=== PATIENT | female | born 1960 | race Caucasian/White ===

== ENCOUNTER 2017-10-28 16:27 | Inpatient (IN) ==
[2017-10-28] MEDS ORDERED: Acetaminophen 325 MG TABLET PO PRN (22:52)
[2017-10-28] MEDS ORDERED: Naloxone 0.4 MG/ML INJ IVP PRN (22:52)
--- NOTE | 2017-10-28 23:14 | Internal Med History&Physical ---
Date of Encounter: 10/28/17 Time of Encounter: 23:00 Assessment and Plan (1) Acute ischemic stroke Current visit: Yes Status: Acute Acute ischemic stroke involving the left temporal and left parietal and left occipital lobe. 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 Acute/subacute. Continue Aggrenox and atorvastatin. Consult neurology. Telemetry. 2-D echocardiogram. Check lipid profile and A1c. Monitor vital signs closely. Physical therapy, speech therapy evaluation. High risk for complications. (2) Diabetes mellitus Current visit: Yes Status: Chronic Monitor blood sugars. Check A1c level. Sliding scale insulin. Diabetic diet when patient is able to tolerate Qualifiers: Diabetes mellitus type: type 2 Diabetes mellitus skilled nursing insulin use: with terminal gauger use Diabetes mellitus complication status: with hyperglycemia Qualified Code(s): E11.65 - Type 2 diabetes mellitus with hyperglycemia; Z79.4 - intermediate teacher (current) use of insulin; Z79.4 - retirement (current) use of insulin; Z79.4 - retirement (current) use of insulin; Z79.4 - retirement (current ) use of insulin (3) Essential hypertension Current visit: Yes Status: Chronic Monitor blood pressure. Allow for permissive hypertension given acute stroke. (4) Chronic kidney disease, stage III (moderate) Current visit: Yes Status: Chronic Patient appears to have chronic kidney disease stage III at baseline. Will monitor renal function. Avoid nephrotoxic agents. Gentle IV hydration. (5) Hyperlipidemia Current visit: Yes Status: Chronic Check lipid profile. Continue atorvastatin. Qualifiers: Hyperlipidemia type: mixed hyperlipidemia Qualified Code(s): E78.2 - Mixed hyperlipidemia (6) DVT prophylaxis Current visit: Yes Status: Acute Subcutaneous heparin. Internal Medicine - H&P: HPI Chief complaint: Left lower extremity weakness and slurred speech Admitted From: Emergency Dept ([facility]) History of present illness: Ms. Emmanuel is a 57 year old female patient with history of CVA, hypertension, hyperlipidemia, anxiety, depression, diabetes mellitus, multinodular goiter presented to the ER at [facility] with complaints of dizziness and weakness. She had seen her primary care provider earlier for 2 episodes of recent falls. Patient has slurred and hesitant speech. She reports feeling weak this morning and was back at her baseline yesterday. However reviewing her ED records, it appears that the patient has been having declining functional status at home over the past week along with urinary incontinence. She also apparently had 90 pound weight loss and was also complaining of weakness in her left lower extremity. Unclear what her baseline speech is but according to ED records it was most noticeably different according to her family. She reports that her last stroke was in 2007. Her primary care provider sent her to the ER for further evaluation. She underwent a CT scan of the head in the ER which showed subacute stroke in the left side of the brain. This was confirmed with MRI. She was therefore transferred over here for further care. She continues to have slurred and history in speech with weakness in left lower extremity. She denies any chest pain or shortness of breath. No palpitations. No facial droop. No numbness or tingling. Past Med Surg Social Fam HX - Past Medical History Attestation: Yes The following information was validated with the patient. Source: patient, other (Records from [facility]) Medical history: CVA, diabetes, hyperlipidemia, hypertension, other (Possible multiple sclerosis) - Social History Smoking Status: Unknown if ever smoked Alcohol use: none Current living situation: Home - Independent - Additional Family History Additional family history: Reviewed in charts and found to be noncontributory at this time All Systems PM: A 10-system review of systems was performed and is negative for pertinent findings except as documented above in the HPI. - Constitutional Constitutional: no chills, no fever(s), no night sweats - EENT Eyes: no change in vision, no discharge, no pain, no photophobia Ears: no ear discharge, no ear pain, no tinnitus Nose, mouth and throat: no dysphagia, no nasal discharge, no neck pain, no sore throat - Cardiovascular Cardiovascular ROS IM: no chest pain, no diaphoresis, no dyspnea, no lightheadedness, no palpitations, no syncope - Respiratory Respiratory: no cough, no dyspnea, no wheezing, no excessive phlegm production - Gastrointestinal Gastrointestinal: no abdominal pain, no diarrhea, no hematemesis, no hematochezia, no melena, no nausea, no vomiting - Genitourinary Genitourinary: no change in urinary stream, no dysuria, no flank pain, no hematuria - Musculoskeletal Musculoskeletal ROS IM: no numbness, no tingling - Integumentary Integumentary IM: no rash, no unusual bruising - Neurological Neurological ROS: abnormal speech, focal weakness, weakness - Hematologic/Lymphatic Hematologic/Lymphatic: no easy bruising - Constitutional Vitals: Temp Pulse Resp BP Pulse Ox 99.1 F 77 16 105/57 96 10/28/17 22:42 10/28/17 22:42 10/28/17 22:42 10/28/17 22:42 10/28/17 22:42 General appearance: Present: cooperative, A&O X 2, answers questions appropriately Exam: Slurred and hesitant speech - Neck Neck exam general surgery: Present: supple, trachea midline. Absent: lymphadenopathy - Respiratory Respiratory exam: Present: CTAB. Absent: accessory muscle use, rales, rhonchi, wheezes - Cardiovascular Cardiovascular exam: Present: RRR, +S1, +S2, systolic murmur. Absent: diastolic murmur, gallop, rubs - GI/Abdominal GI/Abdominal exam: Present: normal bowel sounds, soft, no peritoneal signs. Absent: distended, tenderness - Extremities Exam Extremities exam: Present: warm, radial pulses palpable and symmetrical. Absent : calf tenderness, cyanotic, pedal edema - Neurological Exam Neurological exam: Present: alert, motor sensory deficit (Patient having decreased strength in her left lower extremity 4 out of 5; 5 out of 5 in all other extremities), speech deficit. Absent: facial droop Internal Med - H&P Results - Labs Labs: Her BBC 9.1, sodium 136, potassium 5, chloride 96, bicarbonate 29, glucose 281, BUN 28, creatinine 1.56 TSH 0.749 - EKG Data -: EKG Interpreted by Myself EKG shows normal: sinus rhythm - EKG Data Interpretation IM: normal EKG - Impressions CT head shows subacute left sided infarct with possible 2 vascular territories involvement. MRI of the brain shows scattered ischemic white matter changes with acute or subacute infarct in the left side of the brain. Reports reviewed. We will review images once they are available.
[2017-10-28] MEDS ORDERED: Ringers Solution, Lactated 1,000 ML IVC SCH (23:45)
[2017-10-29] MEDS ORDERED: D5% in Water 1,000 ML IVC PRN ×2 (01:24→08:52)
[2017-10-29] MEDS ORDERED: *HR* Dextrose 50 % in Water (Syg) 50 ML SYRINGE IVP PRN ×2 (01:24→08:52)
[2017-10-29] MEDS ORDERED: Dextrose Gel 15 GM/37.5 ML TUBE PO PRN ×4 (01:24→08:52)
[2017-10-29 03:53] LABS: Basophils % 0.4 %; Eosinophils # 0.1 K/mcL (0.0-0.6); Eosinophils % 1.1 %; Hematocrit 49.2 % (35.3-44.9); Hemoglobin 15.2 g/dL (11.5-15.4); Immature Granulocytes % 0.3 % (0-4); Lymphocytes # 1.9 K/mcL (0.6-4.6); Lymphocytes % 25.6 %; Mean Corpuscular HGB Conc 30.9 g/dL (31.6-35.5); Mean Corpuscular Hemoglobin 28.3 pg (28.0-33.3); Mean Corpuscular Volume 91.6 fL (83.0-100.0); Mean Platelet Volume 12.5 fL (9.4-12.4); Monocytes # 0.6 K/mcL (0.0-1.3); Monocytes % 8.9 %; Neutrophils # 4.6 K/mcL (1.6-8.9); Nucleated Red Blood Cells 0.3 /100 WBC (0); Platelet Count 194 K/mcL (140-400); Red Blood Count 5.37 M/mcL (3.82-4.97); Red Cell Distribution Width 13.2 % (11.5-14.5); Segmented Neutrophils % 63.7 %
[2017-10-29 04:09] LABS: Calcium 10.2 mg/dL (8.6-10.3); Chol/HDL Ratio 3.3 (0-4.9); Potassium 4.3 mEq/L (3.5-5.1)
[2017-10-29] MEDS: *HR* Heparin 5,000 UNIT/ML VIAL SQ SCH ×2 (06:10→17:39)
[2017-10-29] MEDS ORDERED: Insulin LISPRO 300 UNITS/3 ML VIAL SQ SCH ×4 (07:30→21:30)
[2017-10-29] MEDS: amLODIPine 5 MG TABLET PO SCH (08:19)
[2017-10-29] MEDS: (Mirabegron [Myrbetriq] 25 MG PO SCH (08:20)
[2017-10-29] MEDS ORDERED: Ondansetron 4 MG/2 ML VIAL IVP PRN (08:34)
--- NOTE | 2017-10-29 08:48 | Internal Med Progress Note ---
Date of Encounter: 10/30/17 Time of Encounter: 08:45 - Assessment and plan (1) Acute ischemic stroke Current Visit: Yes Status: Acute Assessment and plan: Residual deficits being dysarthria, and left princess paresis, leg much greater than the arm. (2) Chronic kidney disease, stage III (moderate) Current Visit: Yes Status: Chronic (3) Diabetes mellitus Current Visit: Yes Status: Chronic Assessment and plan: Control could be improved, therefore will adjust her insulin. Qualifiers: Diabetes mellitus type: type 2 Diabetes mellitus prison insulin use: with director physical therapy use Diabetes mellitus complication status: with hyperglycemia Qualified Code(s): E11.65 - Type 2 diabetes mellitus with hyperglycemia; Z79.4 - detention (current) use of insulin; Z79.4 - automotive professional (current) use of insulin; Z79.4 - automotive professional (current) use of insulin; Z79.4 - automotive professional (current ) use of insulin (4) Essential hypertension Current Visit: Yes Status: Chronic Assessment and plan: Appropriate control. - Time Spent With Patient less than 15 minutes - Subjective Interval history: Having some nausea this morning, no abdominal pain, she admits being hungry. She still has some dysarthric speech. Still not moving the left leg much at all. She also will need some rehabilitation upon discharge here. Her sugars are running a bit high as well, will modify her insulin. - Constitutional Vitals: Temp Pulse Resp BP Pulse Ox 98.1 F 68 18 146/79 94 10/29/17 07:55 10/29/17 08:30 10/29/17 07:55 10/29/17 07:55 10/29/17 07:55 General appearance: Present: cooperative, A&O X 3, answers questions appropriately - Head Head exam: Present: normal inspection - Respiratory Respiratory exam: Present: CTAB. Absent: respiratory distress, wheezes, tachypnea - Cardiovascular Cardiovascular exam: Present: RRR, +S1, +S2, systolic murmur. Absent: JVD, tachycardia - GI/Abdominal GI/Abdominal exam: Present: normal bowel sounds, soft, no peritoneal signs. Absent: tenderness - Extremities Exam Additional comments: Minimal left proximal leg motion. Able to raise both upper extremities without difficulty. - Neurological Exam Neurological exam: Present: alert Internal Medicine: Result - Labs CBC & Chem 7: 10/30/17 00:42 10/30/17 00:42 Labs: Short CBC 10/29/17 Range/Units 03:31 WBC 7.2 (4.3-11.1) K/mcL Hgb 15.2 (11.5-15.4) g/dL Hct 49.2 H (35.3-44.9) % Plt Count 194 (140-400) K/mcL Neutrophils # 4.6 (1.6-8.9) K/mcL BMP 10/29/17 03:31 Sodium 136 Potassium 4.3 Chloride 104 Carbon Dioxide 25 BUN 27 H Creatinine 1.36 H Glucose 272 H Calcium 10.2 - Stroke Is the patient on any antithrombotics?: Yes Are there any contradictions to antithrombotics?: No Consult Discharge Plan - Plan Referrals: Brenda Jones MD [Primary Care Provider] -
[2017-10-29] MEDS: Insulin LISPRO 300 UNITS/3 ML VIAL SQ SCH ×3 (11:53→21:59)
--- NOTE | 2017-10-29 13:54 | Neurology - Consult Note ---
Date of Encounter: 10/29/17 Time of Encounter: 13:50 Assessment and Plan (1) Acute ischemic stroke Current Visit: Yes Status: Acute This patient certainly has risk factors for stroke, and has evidence of bihemispheric ischemic infarcts. Also lacunar infarcts are identified. However there is no evidence of any acute infarction. Perhaps the findings on her examination are not acute but may have been there for days or weeks. The most significant abnormalities identified on the MRI involving the left hemisphere however the bulk of her weakness is on the left. She does have right hemispheric abnormalities that reconcile this finding. I am doubtful of any other acute process such as Guillain-[place] or an abnormality of the spinal cord since she has limited pain and sensory changes. I would like to obtain a carotid duplex Doppler study as well as echocardiogram otherwise I would recognize aggressive management of her stroke risk factors which could include aggressive management of her diabetes. Her blood pressure is reasonably well controlled. And she is already on statins. She may need an extended care facility movement is time for discharge. Would recommend maintaining the Aggrenox. Studies have proven no benefit in double antiplatelet therapy for treatment of Cerebral vascular disease. Might also recommend social sciences lecturer evaluation to find out the specifics of her home situation and support systems there. History of Present Illness HPI: Ms. Emmanuel is a 57 year old female who is being seen for neurologic consultation secondary to strokelike symptoms. Patient is a difficult historian and certainly has his speech abnormality. I am not certain whether or not this is acute or not this is been a long-standing problem. However apparently she has had some changes in her speech as well as weakness of the left upper and left lower extremities. She feels me that this all started on Tuesday. But again I am not able to discern the context of when and how her deficits began. Apparently over the last week or so she is shown some declining functional status at home and has apparently had multiple strokes in the past. She is a poorly controlled diabetic, she has a history of hypertension diabetes mellitus chronic kidney disease previous strokes and hyperlipidemia. MRI scan of the brain does reveal evidence of chronic scattered bilateral cortical as well as lacunar infarctions in the deep white matter and basal ganglia. There is a large infarction which appears to be chronic involving the left temporal occipital regions. There is also an old infarct in the left cerebellar peduncle, chronic deep white matter changes bilaterally as well as in the basal ganglia. There is also a significant element of cerebellar atrophy. The scan is movement degraded. The patient seems to me to have some difficulty with cognition. She denies neck pain denies numbness tingling or paresthesias, denies visual changes. She denies back pain. Past Med Surg Social Fam HX - Past Medical History Medical history: CVA, diabetes, hyperlipidemia, hypertension, other (Possible multiple sclerosis) - Past Surgical History Surgical History: no surgical history - Social History Smoking Status: Unknown if ever smoked Alcohol use: none Drug use: none Medications and Allergies Aspirin/Dipyridamole [Aggrenox 25 mg-200 mg Capsule] 1 each PO BID 10/29/17 [ History] Atorvastatin [Lipitor] 40 mg PO HS 10/29/17 [History] Buspirone HCl [Buspar] 7.5 mg PO BID 10/29/17 [History] Carvedilol [Coreg] 25 mg PO BID 10/29/17 [History] Insulin Glargine,Hum.rec.anlog [Basaglar Kwikpen U-100] 10 unit SQ HS 10/29/17 [ History] Mirabegron [Myrbetriq] 25 mg PO DAILY 10/29/17 [History] amLODIPine [Norvasc] 10 mg PO DAILY 10/29/17 [History] 3 Allergy/AdvReac Type Severity Reaction Status Date / Time No Known Drug Allergies Allergy No Verified 10/29/17 01:00 allergies. All Systems: The remainder of the systems were reviewed and are negative Review of Systems: A 10 point review of systems is consistent with the history of present illness and is otherwise negative. Physical Examination - Vital Signs Vital Signs: Initial Vital Signs Temp Pulse Resp BP Pulse Ox 99.1 F 77 16 105/57 96 10/28/17 22:42 10/28/17 22:42 10/28/17 22:42 10/28/17 22:42 10/28/17 22:42 - Exam Exam: Neurologic examination is performed and finds the following; Cerebral functions-she is awake and alert and oriented to person and place. She is not able to give a precise history of her medical circumstances. Her speech is dysarthric however also seems to have difficulty with cognition. She is bradyphrenic. She is follow some simple commands however seems to have motor apraxia with others. Cranial nerves pupils are equal and reactive to light. Saccades movements and pursuit movements are very jerky bilaterally. Sensory to face is intact, mastication is intact. I see no facial asymmetry. Her dentition is very poor. Speech is dysarthric. Tongue protrudes midline. Motor exam-motor strength of the left upper extremity is 4/5 in the deltoids, biceps strength 3/5, left triceps 2 steps 3/5, left concessionist strength 4/5. Left iliopsoas is 3/5, left tibialis anterior 2/5. She also has weakness in eversion of the left foot. She has normal strength bulk and tone of the right upper and right lower extremities. No involuntary movements or atrophy are present. Sensory exam finds no hemihypesthesia. Sensory exam is sometimes difficult to discern in this patient who is confused. Deep tendon reflexes are 1 symmetrically in the biceps triceps and brachial radialis. Patella reflexes are absent symmetrically. Achilles reflexes are absent symmetrically. There is a left Babinski. No right Babinski. No ankle clonus is present. Results - Laboratory Findings CBC and BMP: 10/29/17 03:31 10/29/17 03:31 Abnormal lab findings: Abnormal lab results RBC 5.37 M/mcL (3.82-4.97) H 10/29/17 03:31 Hct 49.2 % (35.3-44.9) H 10/29/17 03:31 MCHC 30.9 g/dL (31.6-35.5) L 10/29/17 03:31 MPV 12.5 fL (9.4-12.4) H 10/29/17 03:31 Nucleated RBCs/100 WBC 0.3 /100 WBC (0) H 10/29/17 03:31 BUN 27 mg/dL (6-20) H 10/29/17 03:31 Creatinine 1.36 mg/dL (0.60-1.20) H 10/29/17 03:31 Est GFR ( Amer) 49 (> 60) L 10/29/17 03:31 Est GFR (Non-Af Amer) 40 (> 60) L 10/29/17 03:31 Glucose 272 mg/dL (70-105) H 10/29/17 03:31 HDL Cholesterol 37 mg/dL (40-59) L 10/29/17 03:31 Consult Discharge Plan - Plan Referrals: Brenda Jones MD [Primary Care Provider] -
[2017-10-29] MEDS ORDERED: NON-FORMULARY MEDICATION 1 EACH EACH (Insulin Glargine,Hum.Rec.Anlog [Basaglar Kwikpen U-1 SQ SCH (21:00)
[2017-10-29] MEDS: Insulin DETEMIR 100 UNIT/ML X5UNITS SQ SCH (22:00)
[2017-10-30] MEDS ORDERED: 0.9 % Sodium Chloride 1,000 ML ONE (00:12)
--- NOTE | 2017-10-30 00:30 | Event Note ---
Date of Encounter: 10/30/17 Time of Encounter: 00:28 Responded to rapid response called around 1215 a.m. today. On arrival to patient's room patient resting in bed. Denies any complaints. Patient had apparently had an episode of bradycardia and hypotension when she was having a bowel movement. Improved spontaneously without any medications. Blood pressure is now improving to her baseline and heart rate is in the 60s. She denies any chest pain palpitations. No dizziness. We will give 500 mL normal saline bolus and recheck CBC basic panel and magnesium. Patient has not had any abnormal rhythm on telemetry prior to this episode.
[2017-10-30 00:57] LABS: Basophils % 0.3 %; Eosinophils # 0.1 K/mcL (0.0-0.6); Eosinophils % 1.5 %; Hematocrit 41.8 % (35.3-44.9); Hemoglobin 13.1 g/dL (11.5-15.4); Immature Granulocytes % 0.3 % (0-4); Lymphocytes # 1.8 K/mcL (0.6-4.6); Lymphocytes % 24.4 %; Mean Corpuscular HGB Conc 31.3 g/dL (31.6-35.5); Mean Corpuscular Volume 92.5 fL (83.0-100.0); Mean Platelet Volume 12.4 fL (9.4-12.4); Monocytes # 0.8 K/mcL (0.0-1.3); Monocytes % 9.9 %; Neutrophils # 4.8 K/mcL (1.6-8.9); Platelet Count 188 K/mcL (140-400); Red Blood Count 4.52 M/mcL (3.82-4.97); Segmented Neutrophils % 63.6 %
[2017-10-30 03:07] LABS: Calcium 9.8 mg/dL (8.6-10.3); Potassium 3.6 mEq/L (3.5-5.1)
[2017-10-30] MEDS: *HR* Heparin 5,000 UNIT/ML VIAL SQ SCH ×2 (06:03→16:46)
--- NOTE | 2017-10-30 07:46 | Internal Med Progress Note ---
Date of Encounter: 11/01/17 Time of Encounter: 07:44 - Assessment and plan (1) Acute ischemic stroke Status: Acute Assessment and plan: She continues to improve. The plan is to continue PT and OT. I think she can be safely discharged tomorrow if also services can find a rehabilitation bed. We will work on a bowel movement today, to avoid further vasovagal spells. 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 No other new concerns. Hope is to continue PT and OT, with need for rehabilitation bed upon discharge for tomorrow. No further nausea - Constitutional Vitals: Temp Pulse Resp BP Pulse Ox 98.3 F 70 18 130/68 100 10/30/17 07:35 10/30/17 07:35 10/30/17 07:35 10/30/17 07:35 10/30/17 07:35 General appearance: Present: cooperative, A&O X 3, answers questions appropriately - Eye Eye exam: Present: EOMI, sclera anicteric. Absent: nystagmus, scleral icterus - Neck Neck exam general surgery: Present: full ROM, normal inspection, supple, trachea midline - Cardiovascular Cardiovascular exam: Present: RRR, +S1, +S2. Absent: JVD, systolic murmur - GI/Abdominal GI/Abdominal exam: Present: normal bowel sounds, soft, no peritoneal signs. Absent: tenderness - Neurological Exam Neurological exam: Present: alert Additional comments: Still considerable left leg weakness, dysarthria is a good deal improved. Internal Medicine: Result - Labs CBC & Chem 7: 10/30/17 00:42 10/30/17 00:42 Labs: Short CBC 10/30/17 Range/Units 00:42 WBC 7.6 (4.3-11.1) K/mcL Hgb 13.1 D (11.5-15.4) g/dL Hct 41.8 (35.3-44.9) % Plt Count 188 (140-400) K/mcL Neutrophils # 4.8 (1.6-8.9) K/mcL BMP 10/30/17 00:42 Sodium 139 Potassium 3.6 Chloride 109 H Carbon Dioxide 23 BUN 26 H Creatinine 1.39 H Glucose 165 H Calcium 9.8 Cardiac Enzymes 10/30/17 Range/Units 00:42 Troponin I 0.03 (< 0.04) ng/mL - Impressions Impressions Echocardiogram 10/28/17 23:33 Impressions: LVEF 70%. Severe concentric left ventricular hypertrophy. Mild left ventricular diastolic dysfunction. Normal right ventricular structure and function. No significant valvular dysfunction. No pulmonary hypertension. Suboptimal saline contrast injection to detect PFO. Left Ventricular Wall Motion: Rest Echo Findings All wall segments showed normal motion. Findings: Study Quality * Technically adequate exam. ECG Findings * Normal sinus rhythm. Left Ventricle * LVEF 70%. * Severe concentric left ventricular hypertrophy. * Mild left ventricular diastolic dysfunction. Right Ventricle * Normal right ventricular structure and function. Right Atrium * Normal right atrial size. Left Atrium * Mildly dilated left atrium. Mitral Valve * Normal mitral valve structure. * No mitral stenosis. * Trace mitral regurgitation. Aortic Valve * No aortic regurgitation. * Trileaflet aortic valve. * No aortic stenosis. Tricuspid Valve * Tricuspid valve not well visualized. * Trace tricuspid regurgitation. Pulmonic Valve * Pulmonic valve is not well visualized. * No pulmonic stenosis. * No pulmonic regurgitation. Pulmonary Artery * Pulmonary artery not well visualized. Aorta * Not well visualized. Pericardium * There is no pericardial effusion present. Interatrial Septum * No evidence of PFO by color Doppler. IVC * The IVC is not well evaluated. - Stroke Is the patient on any antithrombotics?: Yes Are there any contradictions to antithrombotics?: No Consult Discharge Plan - Plan Instructions: Ischemic Stroke (DC), Ischemic Stroke (GEN), Self Care Measures After a Stroke (DC) Referrals: Brenda Jones MD [Primary Care Provider] - (Patient is going to [facility] no PCP appointment needed)
[2017-10-30] MEDS ORDERED: Bisacodyl 10 MG RECTAL SUPPOSITORY RC ONE (07:50)
[2017-10-30] MEDS: Insulin LISPRO 300 UNITS/3 ML VIAL SQ SCH ×4 (08:19→21:44)
[2017-10-30] MEDS: (Mirabegron [Myrbetriq] 25 MG PO SCH (08:20)
[2017-10-30] MEDS: amLODIPine 5 MG TABLET PO SCH (08:20)
[2017-10-30] MEDS: MOM Conc 10 ML UD.LIQ PO SCH (09:26)
[2017-10-30 09:36] LABS: Estimated Average Glucose 395 mg/dl; Hemoglobin A1C 15.4 %
[2017-10-30] MEDS: Insulin DETEMIR 100 UNIT/ML X5UNITS SQ SCH (21:44)
[2017-10-31] MEDS: *HR* Heparin 5,000 UNIT/ML VIAL SQ SCH (06:43)
[2017-10-31] MEDS: amLODIPine 5 MG TABLET PO SCH (08:45)
[2017-10-31] MEDS: MOM Conc 10 ML UD.LIQ PO SCH (08:45)
[2017-10-31] MEDS: Insulin LISPRO 300 UNITS/3 ML VIAL SQ SCH ×2 (08:47→12:05)
[2017-10-31] MEDS: (Mirabegron [Myrbetriq] 25 MG PO SCH (08:50)
--- NOTE | 2017-10-31 09:14 | Discharge Summary ---
<Harley Vo - Last Filed: 10/31/17 09:12> Orders not resulted at time of discharge: Pending orders 10/30/17 00:30 EKG [ECG 12 lead ECG] [ECG] Stat Date of Encounter: 10/31/17 Time of Encounter: 09:13 - Discharge Diagnosis (1) Acute ischemic stroke Priority: Primary Status: Acute (2) Diabetes mellitus Priority: Secondary Status: Chronic Qualifiers: Diabetes mellitus type: type 2 Diabetes mellitus long-term insulin use: with long-term use Diabetes mellitus complication status: with hyperglycemia Qualified Code(s): E11.65 - Type 2 diabetes mellitus with hyperglycemia; Z79.4 - technician terminal and repeater (current) use of insulin; Z79.4 - technician terminal and repeater (current) use of insulin; Z79.4 - correction (current) use of insulin; Z79.4 - technician terminal and repeater (current ) use of insulin (3) Chronic kidney disease, stage III (moderate) Priority: Secondary Status: Chronic (4) Hyperlipidemia Priority: Secondary Status: Chronic Qualifiers: Hyperlipidemia type: mixed hyperlipidemia Qualified Code(s): E78.2 - Mixed hyperlipidemia Hospital course: Ms. Emmanuel is a 57 year old female presented to the emergency room at [facility] with chief complaint of dizziness and weakness. At that time patient had slurred speech and left lower extremity weakness. She also had complaints of weakness. She was noted to have declining functional status at home week before admission with urinary incontinence. She underwent CT scanning of the head which showed subacute stroke in the left side of the brain this was confirmed by MRI. Patient was then transferred to [facility]. Patient's home dose of Aggrenox and statin were continued. Neurology was consulted. Echocardiogram showed a left ventricular ejection fraction of 70% with severe concentric left ventricular hypertrophy. Carotid imaging showed findings of right proximal ICA moderate stenosis of 40-59%, left ICA had nonstenotic plaque. Patient was also noted physical therapy and occupational therapy recommended physical rehabilitation after discharge. Speech therapy also evaluate the patient and she does not require special diet. Neurology noted the patient likely had subacute infarcts rather than acute involving the left hemisphere. She was recommended to continue statin and Aggrenox and be discharged to a rehabilitation facility. During her stay on 10/30/17 patient had a bradycardic and hypotensive episode while having a bowel movement and improved spontaneously without any medications. She was given a 500 mL normal saline bolus. This morning patient is able to tolerate her diet, is alert and oriented 3, vitals are stable. She will be discharged to [facility] once approved. Discharge discussed with: patient, social work - Time Spent with Patient Total time spent providing and/or coordinating discharge services: - Discharge Medications Home Medications: Aspirin/Dipyridamole [Aggrenox 25 mg-200 mg Capsule] 1 each PO BID 10/29/17 [ History] Atorvastatin [Lipitor] 40 mg PO HS 10/29/17 [History] Carvedilol [Coreg] 25 mg PO BID 10/29/17 [History] Insulin ASPART [Novolog] 10 unit SQ TID 10/29/17 [History] Insulin Glargine,Hum.rec.anlog [Basaglar Kwikpen U-100] 10 unit SQ HS 10/29/17 [ History] Mirabegron [Myrbetriq] 25 mg PO DAILY 10/29/17 [History] amLODIPine [Norvasc] 10 mg PO DAILY 10/29/17 [History] Allergies/Adverse Reactions: 3 Allergy/AdvReac Type Severity Reaction Status Date / Time No Known Drug Allergies Allergy No Verified 10/29/17 15:49 allergies. Date of admission: 10/29/17 12:11 Primary care physician: Brenda Jones, Consults: 10/28/17 22:53 Consult to Occupational Therapy [CONS] Routine Comment: Evaluate, develop and implement POC Reason for Consult: Stroke Consult to Physical Therapy [CONS] Routine Comment: Evaluate, develop and implement POC Reason for Consult: Stroke 10/28/17 23:33 Consult to Speech Therapy [CONS] Routine Comment: Evaluate, develop and implement POC Reason for Consult: Acute stroke Call Completed: No 10/29/17 07:39 Consult to Neurology [CONS] Routine Consulting Provider: [facility] Reason for Consult: Acute ischemic stroke Call Completed: No 10/30/17 07:55 Consult to [facility] [CONS] Routine Reason for SW Consult: Needs ECF rehabilitation placement, potential discharge for Discharging clinician: Harley Vo Anticipated date of discharge: 10/31/17 - Constitutional Vitals: Temp Pulse Resp BP Pulse Ox 98.5 F 70 20 130/65 98 10/31/17 07:25 10/31/17 07:25 10/31/17 07:25 10/31/17 07:25 10/31/17 07:25 General appearance: Present: cooperative, A&O X 3, answers questions appropriately - Other Additional findings: General: without distress HEENT: Head atraumatic, normocephalic, EOMI, PERRL, neck nontender to palpation , absent lymphadenopathy, Moist Mucous Membranes, Heart: Regular rate and rhythm with no murmur Lungs: Clear to auscultation bilaterally Abdomen: Soft nontender, nondistended positive bowel sounds Skin: warm and dry Extremities: Absent pedal edema, Neuro: Cranial nerves II through XII intact, UE and LE sensation equal bilaterally, UE strength 5/5 and RLE strength 5/5 and LLE strength 3/5, alert oriented 3, dysarthric speech Vascular: Pedal and radial pulses 2 out of 4 - Patient Status Disposition: Transfer Inpatient Rehab Fac Condition: Fair Functional capacity at discharge: uses cane/walker Overall status at discharge: patient is progressing back to baseline - Discharge Instructions Follow Up With: Brenda Jones MD [Primary Care Provider] - (LEFT VOICEMAIL FOR THEM TO CALL ME BACK 10-31-17 @ 0812) - Diet and Activity Activity: increase activity as tolerated Diet: diabetic diet, low fat, low cholesterol, low salt diet <Bennie Westbrook H - Last Filed: 10/31/17 10:46> Date of Encounter: 10/31/17 Hospital course: Ms. Emmanuel is a 57 year old female - Time Spent with Patient Total time spent providing and/or coordinating discharge services: Date of admission: 10/29/17 12:11 Primary care physician: Brenda Jones, Consults: 10/28/17 22:53 Consult to Occupational Therapy [CONS] Routine Comment: Evaluate, develop and implement POC Reason for Consult: Stroke Consult to Physical Therapy [CONS] Routine Comment: Evaluate, develop and implement POC Reason for Consult: Stroke 10/28/17 23:33 Consult to Speech Therapy [CONS] Routine Comment: Evaluate, develop and implement POC Reason for Consult: Acute stroke Call Completed: No 10/29/17 07:39 Consult to Neurology [CONS] Routine Consulting Provider: [facility] Reason for Consult: Acute ischemic stroke Call Completed: No 10/30/17 07:55 Consult to [facility] [CONS] Routine Reason for SW Consult: Needs ECF rehabilitation placement, potential discharge for - Constitutional Vitals: Temp Pulse Resp BP Pulse Ox 98.5 F 70 20 130/65 98 10/31/17 07:25 10/31/17 07:25 10/31/17 07:25 10/31/17 07:25 10/31/17 07:25 - Stroke Is the patient on any antithrombotics?: Yes Are there any contradictions to antithrombotics?: No Symptom Onset Unknown: Yes Has Patient Been Evaluated by Rehab for Stroke: Yes - Attending Attestation Chronic CVA, no acute episodes Neurology recommended to continue Aggrenox and statin Rehabilitation Time spent on this discharge 40 minutes I examined this patient and my medical decision-making was reviewed with the Resident Physician. I agree with the documented findings, disposition and treatment plan as described except to the extent set forth below.
--- NOTE | 2017-10-31 09:31 | Physician Discharge Referral ---
<Harley Vo - Last Filed: 10/31/17 09:30> [facility] Referral Info Provider in Charge: Toni Provider in Charge after Transfer: PCP Institutional Level of Care: Skilled - Diagnosis (1) Acute ischemic stroke Priority: Primary Status: Acute (2) Diabetes mellitus Priority: Secondary Status: Chronic (3) Chronic kidney disease, stage III (moderate) Priority: Secondary Status: Chronic (4) Hyperlipidemia Priority: Secondary Status: Chronic - Transfer Medications Home Medications: Aspirin/Dipyridamole [Aggrenox 25 mg-200 mg Capsule] 1 each PO BID 10/29/17 [ History] Atorvastatin [Lipitor] 40 mg PO HS 10/29/17 [History] Carvedilol [Coreg] 25 mg PO BID 10/29/17 [History] Insulin ASPART [Novolog] 10 unit SQ TID 10/29/17 [History] Insulin Glargine,Hum.rec.anlog [Basaglar Kwikpen U-100] 10 unit SQ HS 10/29/17 [ History] Mirabegron [Myrbetriq] 25 mg PO DAILY 10/29/17 [History] amLODIPine [Norvasc] 10 mg PO DAILY 10/29/17 [History] Allergies/Adverse Reactions: 3 Allergy/AdvReac Type Severity Reaction Status Date / Time No Known Drug Allergies Allergy No Verified 10/29/17 15:49 allergies. - Respiratory Orders None Smoking Cessation: Smoking cessation has been advised. For more information, call the [employer] Line at 2-110-JMSS-NOW. - Ancillary Orders May use pressure relief devices daily prn - Advance Directives Code Status: Full Code - Mobility Orders Ambulate (with assistance/waker) - Rehabiliation Orders Rehab Potential: Good Rehab Orders: Evaluation for Physical Therapy, Evaluation for Occupational Therapy - Diet Orders Cardiac (ada diet) CERTIFICATION: I certify that the transfer of the above named patient to an Extended Care Facility is necessary for the continuing treatment of the diagnosis listed. The above information is true and accurate reflection of patient's current condition. Confidential - Redisclosure prohibited without a patient's written consent. <Bennie Westbrook - Last Filed: 10/31/17 10:46> - Respiratory Orders Smoking Cessation: Smoking cessation has been advised. For more information, call the [place] [employer] Quit Line at 7-538-RBHP-NOW. CERTIFICATION: I certify that the transfer of the above named patient to an Extended Care Facility is necessary for the continuing treatment of the diagnosis listed. The above information is true and accurate reflection of patient's current condition. Confidential - Redisclosure prohibited without a patient's written consent.
[2017-10-31 11:13] VITALS: BP 122/66
--- NOTE | 2017-10-31 19:49 | Electrocardiograph Report ---
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
== END 2017-10-31 15:55 | DRG 65 ==
LOC: 2NNU
PROVIDERS: ADMIT Family Medicine; ATTEND Internal Medicine